=== PATIENT | female | born 1955 | race Caucasian/White ===

== ENCOUNTER 2018-08-17 08:02 | Day surgery (SDC) | payer OTHER ==
[~2018-08-17] VITALS: Ht 157.5 cm; Wt 65.8 kg
[2018-08-17 09:30] VITALS: BP 156/69
[2018-08-17 15:52] VITALS: BP 128/70
== END 2018-08-17 12:50 | disposition home or self-care (01) ==
LOC: GI 08:02 → OR 10:30 → GI 10:30
PROVIDERS: Internal Medicine
PROC: 06L38CZ Occlusion of Esophageal Vein with Extraluminal Device, Via Natural or Artificial Opening Endoscopic (ICD-10-PCS; principal; 2018-08-17 10:30)
DX: K75.81 Nonalcoholic steatohepatitis (NASH) (principal); I85.10 Secondary esophageal varices without bleeding; E11.9 Type 2 diabetes mellitus without complications; E78.5 Hyperlipidemia, unspecified; I10 Essential (primary) hypertension; F17.210 Nicotine dependence, cigarettes, uncomplicated; Z68.26 Body mass index [BMI] 26.0-26.9, adult
CPT/HCPCS: 43235; 82962; J1200; J1610; J2250; J2310; J3010; J3490